=== PATIENT | female | born 1960 | race Caucasian/White ===

== ENCOUNTER → 2018-01-09 | Day surgery (SDC) | payer OTHER ==
[~2018-01-09] VITALS: Ht 162.6 cm; Wt 104.3 kg
[~2018-01-09] MED LIST: AMLODIPINE BESY10 M1 PO; DAILY MULTIPLE1 EACH PO; DIOVAN320 M1 PO; EFFEXOR XR150 M1 PO; FISH OIL 1,2001 EAC1 PO; PRAVASTATIN SOD10 M2 PO; PROAIR HFA8.5 GM INH; REPATHA SU140 MG/1 M INJ; VALSARTAN-HCTZ1 EAC4 PO; VITAMIN D250000 UNIT PO
--- NOTE | 2018-01-09 07:14 | History & Physical Pre-Op ---
General Information and HPI History of Present Illness: Enedelia is a 57-year-old female with a long-standing and worsening complaint of painful Achilles tendinosis left and right. Patient is undergone an extended course of conservative care, including shoe gear and activity modification, rest , immobilization and courses of NSAIDs. None of this is yielded her any significant relief. Patient presents today for preoperative surgical consultation. Allergies/Medications Allergies: Coded Allergies: No Known Allergies (01/05/18) Home Med list Albuterol Sulfate (Proair Hfa) 90 MCG HFA.AER.AD 2 PUF INH PRN RESP. ( Reported) Amlodipine Besylate 10 MG TABLET 1 TAB PO DAILY BP (Reported) Ergocalciferol (Vitamin D2) (Vitamin D2) 50,000 UNIT CAPSULE 1 CAP PO Q30D SUPPLEMENT (Reported) Evolocumab (Repatha Sureclick) 140 MG/ML PEN.INJCTR 140 MG INJ Q2W CHOLESTEROL (Reported) Multivitamin (Daily Multiple Vitamin) 1 EACH TABLET 1 TAB PO DAILY SUPPLEMENT (Reported) Barnwell-3 Fatty Acids/Fish Oil (Fish Oil 1,200 MG Softgel) 360 MG-1,200 MG CAPSULE.DR 2 SGL PO AD SUPPLEMENT (Reported) Pravastatin Sodium 10 MG TABLET 1 TAB PO EOD CHOLESTEROL (Reported) Valsartan/Hydrochlorothiazide (Valsartan-Hctz 320-12.5 MG Tab) 320 MG-12.5 MG TABLET 1 TAB PO DAILY BP (Reported) Venlafaxine HCl (Effexor XR) 150 MG CAP.ER.24H 1 CAP PO DAILY MENTAL HEALTH ( Reported) Past History Surgical History Pertinent Surgical History: non-contributory Review of Systems Review of Systems: Unremarkable except for that noted in history of present illness Exam & Diagnostic Data Physical Exam: Lungs clear bilaterally. Heart sounds rate and rhythm regular. Lower extremity physical exam demonstrates intact pedal pulses bilaterally. Both dorsalis pedis and posterior tibial arteries are palpable bilaterally. Patient without any sensory motor deficits. Deep tendon reflexes grossly intact. Patient noted assuming pain with palpation to the distal Achilles tendon bilaterally at the level of the watershed region. There is a fusiform morphology identified. Ankle range of motion noted to be diminished, especially in dorsiflexion bilaterally. Assessment/Plan Assessment/Plan: Painful Achilles tendinosis left and right. A lengthy discussion reviewing both surgical and conservative options held the patient at bedside and the patient elected to go forward with surgery despite the risks. As Ranked By This Provider Problem List: 1. Other synovitis and tenosynovitis, right ankle and foot Attending MD Review Statement Attending Statement Attending MD Statement: examined this patient
--- NOTE | 2018-01-09 10:25 | Operative Report ---
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 The patient isn't securely fastened to the operating table utilizing safety belt. After Mr.'s of IV sedation, 10 mL of 0.5% Marcaine plain was infiltrated about the patient's left and right ankles. 2 well-padded calf tourniquets were placed about the patient's left and right upper cast. 2 g of Ancef were delivered intravenously times one dose. Left right lower extremities were scrubbed prepped and draped in usual aseptic manner. The left lower extremity was elevated to examine to limb, at which point the calf tourniquet inflated 250 mmHg. Attention directed to the distal left leg, where a linear incision was made 2 finger rest distal to the medial have a gastrocnemius muscle. Was then bluntly deepened down to the medial margin of the gastroc fascia. An interval was developed between the peritenon and the fascia and a gastrocnemius recession was performed. The skin edges were then reapproximated 4-0 Vicryl. Attention was then directed to the distal heel where portals were developed with a 62 K wire. The tissue was then ablated with 4 W of radiofrequency energy utilizing the [employer] micro-ablator at half millimeters intervals. Next, the gastroc incision was dressed with Xeroform [place] dressings and Coban were placed about the extremity. The tourniquet was then deflated. Next, the right lower extremity is elevated to examine to limb, which point the calf tourniquet inflated 250 mmHg. Was directed to the distal leg, where a linear incision was made 2 finger rest distal medial have a gastrocnemius muscle. Dissection was then bluntly down to the medial margin of the gastroc fascia. An interval was developed between the peritenon the fascia. The gastrocnemius recession was then performed under direct visualization. The skin edges reprepped with 4-0 Vicryl. Attention then directed distally, where portals were developed with a 62 K wire overlying the posterior insertion of the Achilles tendon. Then ablated over this region with 4 W of radiofrequency energy utilizing the [facility] micro-ablator. The gastroc incision was dressed with Xeroform and Island dressings were placed followed by Shayne. The patient noted tolerate both procedure and anesthesia well and the patient was transported from the operating room to recovery by sent stable best assess intact all digits bilateral feet. Please cc a copy of this dictation to Jose J Ashford DPM.
== END ==
LOC: STS 02:44
DX: M21.6X2 Other acquired deformities of left foot (principal); M21.6X1 Other acquired deformities of right foot; M77.52 Other enthesopathy of left foot and ankle; M77.51 Other enthesopathy of right foot and ankle; I10 Essential (primary) hypertension; F17.200 Nicotine dependence, unspecified, uncomplicated
CPT/HCPCS: J0690; J1885; J2001; J2250